=== PATIENT | male | born 1990 | race Two or more races ===

== ENCOUNTER 2025-04-05 15:13 | Emergency (ER) | payer OTHER ==
[~2025-04-05] VITALS: Ht 188 cm; Wt 106.6 kg
[2025-04-05 15:33] VITALS: BP 120/78; O2SAT 97
[2025-04-05] MEDS ORDERED: CEFTRIAXONE SODIUM 1,000 MG VIAL ONE (16:28)
[2025-04-05] MEDS ORDERED: KETOROLAC TROMETHAMINE 30 MG VIAL ONE (16:28)
[2025-04-05] MEDS ORDERED: KETOROLAC TROMETHAMINE 30 MG VIAL IM ONE (16:30)
[2025-04-05] MEDS ORDERED: CEFTRIAXONE SODIUM 1,000 MG VIAL IM ONE (16:30)
[2025-04-05] MEDS ORDERED: DICLOFENAC SODI50 MG PO (18:36)
[2025-04-05] MEDS ORDERED: BACTRIM DS TAB1 EACH PO (18:50)
== END 2025-04-05 22:05 | disposition home or self-care (01) ==
LOC: ER 15:13
DX: G89.11 Acute pain due to trauma (principal); M25.522 Pain in left elbow; M25.422 Effusion, left elbow